=== PATIENT | female | born 1975 | race Caucasian/White ===

== ENCOUNTER 2022-01-18 06:01 | Day surgery (SDC) | payer OTHER ==
[~2022-01-18] VITALS: Ht 165.1 cm; Wt 119.0 kg
[~2022-01-18 06:01] MED LIST: ASPI-630 PO; FERR325T14 PO; HYDROmorphone 2 MG/ML INJ. IVP PRN; IV RINGERS,LACTATED 1000ML 1,000 ML IV SCH; LOSA-73 PO; MULT-121 PO; PROCHLORPERAZINE 10 MG/2 ML VIAL. IVP PRN; SPIR25TA5 PO; fentaNYL PF VIAL 100 MCG/2 ML VIAL IVP PRN
[2022-01-18 06:30] VITALS: BP 142/80
[2022-01-18] MEDS ORDERED: KETOROLAC 30 MG/ML VIAL. ONE (06:40)
[2022-01-18] MEDS ORDERED: PROPOFOL 10 MG/ML (20ML) VIAL. IV ONE (06:40)
[2022-01-18] MEDS ORDERED: DEXAMETHASONE SOD PHOS 20 MG/5 ML VIAL. ONE (06:41)
[2022-01-18] MEDS ORDERED: LIDOCAINE 2% PF 5 ML VIAL. ONE (06:41)
[2022-01-18] MEDS ORDERED: fentaNYL PF VIAL 100 MCG/2 ML VIAL ONE ×2 (06:41→08:10)
[2022-01-18] MEDS ORDERED: ONDANSETRON PF 4 MG/2 ML VIAL. ONE (06:42)
[2022-01-18] MEDS ORDERED: MIDAZOLAM HCL/PF 2 MG/2 ML VIAL. ONE (06:46)
[2022-01-18] MEDS ORDERED: FAMOTIDINE 20 MG/2 ML VIAL ONE (06:53)
[2022-01-18] MEDS ORDERED: NEOSTIGMINE METHYLSULFATE 5 MG/5 ML SYRINGE. ONE (06:53)
[2022-01-18] MEDS ORDERED: ROCURONIUM 50 MG/5 ML VIAL. ONE (06:53)
[2022-01-18] MEDS ORDERED: GLYCOPYRROLATE 1 MG/5 ML VIAL. ONE (06:54)
[2022-01-18] MEDS ORDERED: ENOXAPARIN 40 MG/0.4 ML SYRINGE. SQ ONE (07:00)
[2022-01-18] MEDS ORDERED: BUPIVACAINE-EPI 0.25%-1:200000 MPF 30 ML VIAL. ONE (07:26)
[2022-01-18] MEDS ORDERED: NALOXONE 0.4 MG/ML VIAL. IV PRN (09:15)
[2022-01-18] MEDS ORDERED: CALCIUM CARBONATE 500 MG TAB.CHEW PO PRN (09:15)
[2022-01-18] MEDS ORDERED: diphenhydrAMINE 50 MG/ML VIAL IV PRN (09:15)
[2022-01-18] MEDS ORDERED: SIMETHICONE 80 MG TAB.CHEW PO PRN (09:15)
[2022-01-18] MEDS ORDERED: HYDROcodone/APAP 5/325MG 1 TAB TABLET PO PRN (09:15)
[2022-01-18] MEDS ORDERED: 0.9 % SODIUM CHLORIDE 10 ML DISP.SYRIN. IV PRN (09:15)
[2022-01-18] MEDS ORDERED: MAG HYDROX/ALUMINUM HYD/SIMETH 30 ML ORAL.SUSP PO PRN (09:15)
[2022-01-18] MEDS ORDERED: diphenhydrAMINE HCL 25 MG CAPSULE PO PRN (09:15)
--- NOTE | 2022-01-18 09:18 | PDOC4 ---
BRIEF OPERATIVE NOTE Date: Jan 18, 2022 Pre-Op Diagnosis desires perm sterility, menorrhagia, desires IUD removal Post-Op Diagnosis same Procedure Performed operative scope with BTL, diagnostic hysteroscopy and novasure endometrial ablation Surgeon Dr. Mare Li Anesthesiologist Dr. Lott Anesthesia Type: General Blood Loss 10cc IV Fluid see anesthesia records Urine Output straight cath prior Specimens Obtained none, just IUD removal and will be thrown away Findings small RV uterus, some endometriosis; normal bilateral tubes and ovaries, normal appendix, some upper abd adhesions but none lower Complications none Operative Note [id number] uterus 7.5-8.0cm functional L 4.5 w 4.1 ablation 1min 30 sec MARE LI MD Jan 18, 2022 09:18
[2022-01-18] MEDS ORDERED: HYDR-2761 PO (09:25)
[2022-01-18] MEDS ORDERED: MORPHINE SULFATE 2 MG/ML INJ. ONE (09:28)
[2022-01-18] MEDS: MORPHINE SULFATE 2 MG/ML INJ. IVP PRN ×2 (09:31→09:41)
[2022-01-18] MEDS ORDERED: HYDROcodone/APAP 5/325MG 1 TAB TABLET PO ONE (09:45)
[2022-01-18 09:50] VITALS: BP 142/82
--- NOTE | 2022-01-18 12:54 | OP ---
DATE OF SURGERY: 01/18/2022 PREOPERATIVE DIAGNOSIS: Desires permanent sterility, her intrauterine device to be removed and menorrhagia. POSTOPERATIVE DIAGNOSIS: Desires permanent sterility, her intrauterine device to be removed and menorrhagia. PROCEDURE: Operative laparoscopy with bilateral tubal ligation, diagnostic hysteroscopy and NovaSure endometrial ablation. SURGEON: Mare Trinidad MD. LITHOPLATE MAKER: OR personnel. ANESTHESIOLOGIST: Justen Lott MD. ANESTHESIA: General. BLOOD LOSS: 10 mL. URINE OUTPUT: With a straight cath prior to procedure. IV FLUIDS: I believe it was 1200, but please see anesthesia records. SPECIMENS: None just the IUD was removed and will be thrown away. FINDINGS: She had a small retroverted uterus, some evidence of endometriosis on the left round ligament. It looks like initial kind of filmy adhesions on the right side, but the right tube and ovary popped up and were normal. Both tubes and ovary were normal, small retroverted uterus. She did have some vesicular disease in the posterior cul-de-sac. No significant pelvic adhesive disease. She had some upper abdominal , but a normal appendix and just dilated, but grossly normal bowel. COMPLICATIONS: None. DESCRIPTION OF PROCEDURE: This patient was taken to the operating room where general anesthesia was placed. The patient was placed in dorsal lithotomy position in Brian stirru. The patient's abdomen and vagina were both prepped and draped in the normal sterile fashion and a straight cath was done prior to my arrival. Upon my arrival, a timeout was performed. Once everyone agreed on the patient, the site, the procedure, the antibiotics, the procedure was initiated. A bivalve speculum was placed in the patient's vagina. A single-tooth tenaculum was used to grasp the anterior lip of the cervix. She was dilated up to an 8/9 with the Hegar dilators, sounded to 7.5-8 cm and the Valtchev uterine manipulator was placed through the endocervical os, locked on the single tooth tenaculum and the bivalve speculum was then removed. Top gloves were discarded and changed. Attention was then turned to the abdomen where a small infraumbilical skin incision was made with a scalpel, a curved Kraol was used to dissect through the subcuticular layer to the fascia. I tried a few times with the short trocar, but unfortunately we were not able to get in, they went and got me a long trocar and I was tunneling in the subcutaneous and did not appear to be in at any point. Pressure remained 15, tracking in the subcutaneous, so at this point did get a Veress needle, a long Veress and you could absolutely hear the 2 pops, opening patient pressure was 6 mmHg. We insufflated carbon dioxide gas to get through a pressure of 16-17 at which case, it was removed and the trocar went immediately in after we were able to get the Veress in and get the insufflation. Initial look around appeared within normal limits, no adhesions, down below. We were able to get the suprapubic port in, it was very stretchy as well, but we were able to get it in under direct visualization. I did move the camera and looked up above. Like I said, there were some omental upper abdominal adhesions. I did not go up there at all, but around the umbilicus and below no adhesions, nothing, no evidence of ever any other openings that we were ever in. We were in the subcutaneous prior to the Veress and getting in successfully. So at this point, the camera was moved back to the infraumbilical port, suprapubic port, a [place] was placed down, looking around gently getting the bowel out of the pelvis, looking up the left tube and ovary then placing the LigaSure and cauterizing 3 areas in the mid ampullary area of the left tube, going back to the middle cauterizing through and through the tube, making sure we were through the mesosalpinx and cauterizing and cutting and then we went and found the right fallopian tube, flipped it up out of the pelvis. The tube and ovary were normal. There were no cysts on either ovary again cauterizing 2 or 3 areas of this tube and going back to the middle, cauterizing and cutting and cauterizing and cutting again to make sure we were through and through and the tube was cauterized and no longer connected. Once this was done, the suprapubic port was removed under direct visualization. Gas was released from that infraumbilical port. Both were removed. Both ports were closed with 4-0 nylon and injected with 10 mL of 0.25% Marcaine with epinephrine. At this point, going below, the single tooth was left on, but the Valtchev was taken out. The open arm bivalve speculum was placed back in the patient's vagina and the 5 mm hysteroscope was used. I was able to see the right tubal opening, but there was an abundant amount of tissue, possibly a polyp, but she again sounded to about 7.5, almost 8 cm, so the functional length was set at 4.5, the width settled at 4.1. The device was enabled. Cavity assessment check was performed. It passed the cavity assessment, check went straight into the ablation process, which lasted 1 minute and 30 seconds. Once that was done, the device was removed. The tenaculum was removed. There was no active bleeding. The speculum was removed and the procedure was ended. [facility] [place] DR: Francisco TID: [id number]
== END 2022-01-18 10:20 | disposition home or self-care (01) ==
LOC: SURG 06:01
PROVIDERS: ATTEND Obstetrics & Gynecology
DX: N92.0 Excessive and frequent menstruation with regular cycle (principal); I10 Essential (primary) hypertension; E78.00 Pure hypercholesterolemia, unspecified; M19.90 Unspecified osteoarthritis, unspecified site; Z79.82 Long term (current) use of aspirin; Z79.899 Other long term (current) drug therapy; Z98.890 Other specified postprocedural states; Z72.89 Other problems related to lifestyle; Z88.2 Allergy status to sulfonamides
CPT/HCPCS: 58563; 81025; A4930; A6219; J0690; J1100; J1650; J1885; J2250; J2270; J2405; J2704; J2710; J3010; J3490